=== PATIENT | female | born 1990 ===

== ENCOUNTER 2025-04-09 10:39 | Emergency (ER) | payer OTHER, SELFPAY ==
[2025-04-09 10:52] VITALS: BP 108/55; PULSE 62; RESP 18; TEMP 36.8; O2SAT 100
== END 2025-04-09 16:39 | disposition left against medical advice (07) ==
LOC: ANHED 16:06
PROVIDERS: Emergency Provider Nurse Practitioner Family
DX: R51.9 Headache, unspecified (principal)
CPT/HCPCS: 99199